=== PATIENT | female | born 1950 | race Asian ===

== ENCOUNTER 2017-06-03 16:05 | Inpatient (IN) | payer MEDICARE, BC ==
[~2017-06-03] VITALS: Ht 162.6 cm; Wt 61.0 kg
[2017-06-03] MEDS ORDERED: OCTREOTIDE 50 MCG in SOD CHLORIDE 0.9% 25 ML IVPB STA (16:13)
[2017-06-03] MEDS ORDERED: ONDANSETRON 4 MG INJ IV STA (16:13)
[2017-06-03] MEDS ORDERED: SOD CHLORIDE 0.9% 1,000 ML IV STA (16:13)
[2017-06-03] MEDS ORDERED: PANTOPRAZOLE 40 MG INJ IV STA (16:13)
[2017-06-03 16:56] LABS: BASOPHILS % 0.6 % (0.0-2.0); EOSINOPHILS % 0.3 % (0.0-7.0); HEMATOCRIT 26.2 % (37.0-47.0); HEMOGLOBIN 9.2 g/dl (12.0-16.0); LYMPHOCYTES # 1.7 10^3/ul (0.8-2.9); LYMPHOCYTES % 24.7 % (15.0-51.0); MEAN CORPUSCULAR HEMOGLOBIN 34.1 pg (29.0-33.0); MEAN CORPUSCULAR HGB CONC 35.1 g/dl (32.0-37.0); MEAN PLATELET VOLUME 10.9 fl (7.4-10.4); MONOCYTE # 0.3 10^3/ul (0.3-0.9); MONOCYTES % 4.4 % (0.0-11.0); NEUTROPHIL # 4.7 10^3/ul (1.6-7.5); NEUTROPHILS % 69.3 % (39.0-77.0); PLATELET COUNT 172 10^3/UL (140-415); RED CELL DISTRIBUTION WIDTH 12.5 % (11.5-14.5); WHITE BLOOD COUNT 6.8 10^3/ul (4.8-10.8)
--- NOTE | 2017-06-03 17:08 | RADRPT ---
PROCEDURE: XR Chest. CLINICAL INDICATION: Gastrointestinal bleeding. TECHNIQUE: Single frontal view. COMPARISON: None. FINDINGS: The lungs are clear. The heart size is normal. There is no pleural effusion. There is no pneumothorax. IMPRESSION: 1. Normal chest radiograph. RPTAT: QQ .Fabricio Benz MD, Date Time Electronically viewed and signed by .Fabricio Benz MD, on 06/03/2017 17:08 .R/
[2017-06-03 17:11] LABS: INR 1.1; PROTIME 14.2 Sec (12.2-14.2); PT RATIO 1.1
[2017-06-03 17:12] LABS: PARTIAL THROMBOPLASTIN TIME 28.2 Sec (25.0-35.0)
--- NOTE | 2017-06-03 17:12 | ERA ---
ER Documentation Chief Complaint Date/Time DATE: 06/03/17 TIME: 17:11 Chief Complaint GIB STARTING YESTERDAY, BLOOD IN VOMIT AND STOOL. HPI 66-year-old woman complains of coffee-ground emesis and black tarry stools since yesterday. She also complains of sharp epigastric abdominal pain, nonradiating and nonexertional. She denies blood per rectum and states she has never had these symptoms before, denies history of alcoholism, no fevers or chills, no chest pain or shortness of breath, no headache or blurry vision, no trauma, no dysuria. ROS All systems reviewed and are negative except as per history of present illness. Medications Home Meds Reported Medications Pravastatin Sodium* (Pravastatin Sodium*) 40 Mg Tablet, 40 MG PO HS, TAB 06/03/17 Lisinopril* (Lisinopril*) 5 Mg Tablet, 5 MG PO DAILY, #30 TAB 06/03/17 Metformin Hcl* (Metformin Hcl*) 500 Mg Tablet, 500 MG PO WITH BREAKFAST, #30 TAB 06/03/17 Allergies Allergies: Uncoded Allergies: PORK (Allergy, Unknown, 06/03/17) PMhx/Soc None Hx Miscellaneous Medical Probl: Yes (DM, VERICOSE VEIN SX) Hx Alcohol Use: No Hx Substance Use: No Hx Tobacco Use: No Smoking Status: Never smoker FmHx Family History: No diabetes Physical Exam Vitals Vital Signs Date Time Temp Pulse Resp B/P Pulse Ox O2 Delivery O2 Flow Rate FiO2 06/03/17 18:01 77 16 92/51 98 Room Air 06/03/17 17:17 72 16 96/52 98 Room Air 06/03/17 16:05 98.6 88 16 96/62 98 Physical Exam GENERAL: Well-developed, well-nourished, appears dehydrated, afebrile HEENT: Dry mucous membranes, pale conjunctiva, no cervical spine tenderness or step-off deformities, no goiter, no jaundice or icterus, extraocular movements intact without pain. No submandibular induration, and no pharyngeal erythema NEURO: Alert and oriented 3, cranial nerves II through XII intact bilaterally, pupils equal round reactive to light, no focal deficits or facial asymmetry, sensation intact distally Strength 5/5 in upper and lower extremities bilaterally CARDIAC: Regular rate and rhythm, no murmurs rubs or gallops LUNGS: Clear bilaterally no wheezing crackles or stridor ABDOMEN: Soft nontender, no guarding, no rigidity, no rebound, no psoas sign no obturator sign. Normoactive bowel sounds SKIN: Warm and dry to touch, no abrasions, contusions, or hematomas, no lacerations, no ecchymosis, no target lesions, and without ulcers EXTREMITIES: No clubbing cyanosis or edema, calves are bilaterally symmetrical, no Homans sign, no popliteal cord sign. Distal pulses equal and bilateral PSYCH: Normal affect without agitation or irritability Result Diagram: 06/03/17 1625 06/03/17 1625 Results 24 hrs Laboratory Tests Test 06/03/17 16:25 White Blood Count 6.810^3/ul Red Blood Count 2.7010^6/ul Hemoglobin 9.2g/dl Hematocrit 26.2% Mean Corpuscular Volume 97.0fl Mean Corpuscular Hemoglobin 34.1pg Mean Corpuscular Hemoglobin Concent 35.1g/dl Red Cell Distribution Width 12.5% Platelet Count 11349^3/UL Mean Platelet Volume 10.9fl Neutrophils % 69.3% Lymphocytes % 24.7% Monocytes % 4.4% Eosinophils % 0.3% Basophils % 0.6% Nucleated Red Blood Cells % 0.0/100WBC Neutrophils # 4.710^3/ul Lymphocytes # 1.710^3/ul Monocytes # 0.310^3/ul Eosinophils # 0.010^3/ul Basophils # 0.010^3/ul Nucleated Red Blood Cells # 0.010^3/ul Prothrombin Time 14.2Sec Prothrombin Time Ratio 1.1 INR International Normalized Ratio 1.10 Activated Partial Thromboplast Time 28.2Sec Sodium Level 139mmol/L Potassium Level 3.8mmol/L Chloride Level 108mmol/L Carbon Dioxide Level 24mmol/L Anion Gap 11 Blood Urea Nitrogen 40mg/dl Creatinine 0.65mg/dl Glucose Level 204mg/dl Calcium Level 8.0mg/dl Total Bilirubin 0.1mg/dl Direct Bilirubin 0.00mg/dl Indirect Bilirubin 0.1mg/dl Aspartate Amino Transf (AST/SGOT) 16IU/L Alanine Aminotransferase (ALT/SGPT) 26IU/L Alkaline Phosphatase 27IU/L Troponin I < 0.012ng/ml Total Protein 5.5g/dl Albumin 3.0g/dl Globulin 2.50g/dl Albumin/Globulin Ratio 1.20 Lipase 154U/L Current Medications Medications (Trade) Dose Ordered Sig/Adela Route PRN Reason Start Time Stop Time Status Last Admin Dose Admin Sodium Chloride (NS) 1,000 ml @ 2,000 mls/hr Q30M STAT IV 06/03/17 16:13 06/03/17 16:42 DC 06/03/17 16:21 Pantoprazole 40 mg 40 mg ONCE STAT IV 06/03/17 16:13 06/03/17 16:15 DC 06/03/17 16:23 Octreotide Acetate/Sodium Chloride (Sandostatin/NS) 26 ml @ 100 mls/hr Q16M STAT IVPB 06/03/17 16:13 06/03/17 16:28 DC 06/03/17 16:55 Ondansetron HCl (Zofran Inj) 4 mg ONCE STAT IV 06/03/17 16:13 06/03/17 16:15 DC 06/03/17 16:23 Procedures/MDM IV line was established patient was placed on manager equity rhythm strip revealed a sinus rhythm at about 80 bpm with upright P and T waves. Patient was afebrile. EKG performed, read by me revealed a normal sinus rhythm 85 bpm, normal axis, narrow QRS complex, no concerning ST elevations or depressions noted. I administered 2 L normal saline intravenously for initial hypotension, Zofran 4 mg IV, Protonix 40 mg IV, and octreotide 50 mcg IV 1. Chest X-ray 1V Interpreted by me: Soft Tissue: No acute abnormalities Bones: No acute abnormalities Mediastinum/Cardiac Silhouette/Lungs: No acute abnormalities CBC revealed anemia with a hemoglobin of 9.2, electrolytes revealed dehydration with a BUN/creatinine of 40/0.7, liver function tests are normal, electrolytes are unremarkable although calcium was low at 8. I obtain GI consultation regarding the patient's presentation and symptomatology , Dr. Bolivar agreed to consult. Critical Care: Time: 43 minutes, this was time separate from other billable procedures. Treatments/Evaluations: Close monitoring and treatment of unstable vital signs, cardiorespiratory, and neurologic status, while maintaining tight balance of fluid, respiratory, and cardiac interventions. Patient initially presented hypotensive and symptomatic, she required aggressive IV fluid resuscitation which improved blood pressure. Patient admitted to telemetry setting. Departure Diagnosis: Primary Impression: Anemia Qualified Code: D64.9 - Anemia, unspecified type Additional Impressions: Hemorrhagic gastritis Qualified Code: K29.01 - Acute gastritis with hemorrhage, unspecified gastritis type Dehydration Hypotension Qualified Code: I95.9 - Hypotension, unspecified hypotension type Condition: SAWYER Hu MD Jun 03, 2017 17:12
[2017-06-03 17:15] LABS: ALANINE AMINOTRANSFERASE 26 IU/L (13-69); ALKALINE PHOSPHATASE 27 IU/L (42-121); ANION GAP 11 (8-16); ASPARTATE AMINO TRANSFERASE 16 IU/L (15-46); BILIRUBIN,INDIRECT 0.1 mg/dl (0-1.1); BILIRUBIN,TOTAL 0.1 mg/dl (0.2-1.3); BLOOD UREA NITROGEN 40 mg/dl (7-20); CARBON DIOXIDE 24 mmol/L (21-31); CHLORIDE 108 mmol/L (97-110); CREATININE 0.65 mg/dl (0.44-1.00); GLUCOSE 204 mg/dl (70-220); POTASSIUM 3.8 mmol/L (3.5-5.1); SODIUM 139 mmol/L (135-144); TOTAL PROTEIN 5.5 g/dl (6.1-8.1)
[2017-06-03] MEDS ORDERED: METF500T4 PO (17:22)
[2017-06-03] MEDS ORDERED: LISI-313 PO (17:23)
[2017-06-03] MEDS ORDERED: PRAV40TA76 PO (17:23)
[2017-06-03 17:34] LABS: TROPONIN-I < 0.012 ng/ml (0.00-0.12)
[2017-06-03 19:54] VITALS: BP 108/57; RESP 20
[2017-06-03 20:02] VITALS: PULSE 90
[2017-06-03 20:13] VITALS: Ht 162.6 cm; Wt 61.0 kg
[2017-06-03 20:25] VITALS: BP 108/57; PULSE 94; RESP 20
[2017-06-03] MEDS ORDERED: hydrALAzine 20 MG INJ IV PRN (21:00)
[2017-06-03] MEDS ORDERED: ONDANSETRON 4 MG INJ IV PRN (21:00)
[2017-06-03] MEDS: DEXTROSE 5%-0.45% NACL 1,000 ML IV SCH (21:26)
[2017-06-04] VITALS (12 sets, daily range): BP systolic 85–119; BP diastolic 47–59; PULSE 73–95; RESP 18–20
[2017-06-04] MEDS ORDERED: DEXTROSE 50% 50 ML SYRINGE IV PRN ×2 (05:30)
[2017-06-04] MEDS ORDERED: GLUCAGON 1 MG INJ IM PRN (05:30)
[2017-06-04] MEDS ORDERED: GLUCOSE GEL 15 GRAM TUBE BUCCAL PRN (05:30)
[2017-06-04] MEDS ORDERED: GLUCOSE GEL 15 GRAM TUBE PO PRN ×2 (05:30)
[2017-06-04] MEDS: PANTOPRAZOLE 40 MG INJ IV SCH ×2 (05:35→17:57)
[2017-06-04] MEDS: DEXTROSE 5%-0.45% NACL 1,000 ML IV SCH ×3 (07:22→23:00)
--- NOTE | 2017-06-04 07:49 | HP ---
Date/Time of Note Date/Time of Note DATE: 06/04/17 TIME: 07:44 Assessment/Plan VTE Prophylaxis VTE Prophylaxis Intervention: SCD's Lines/Catheters IV [facility]ter Type (from [facility]): Peripheral IV Urinary Cath still in place: No Assessment/Plan Assessment/Plan 1. Upper GI bleed -Monitor H&H closely -PPI -GI consult 2. Syncope, secondary to above -Continue telemetry monitoring -We will check a 2D echo to evaluate for any structural heart disease resulting in her syncope even though most likely secondary to GI bleed/vomiting 3. History of type II diabetes -Check A1c -Insulin while in-house with adjustment as needed 4. History of dyslipidemia -Continue statin HPI/ROS Admit Date/Time Admit Date/Time Jun 03, 2017 at 17:41 Hx of Present Illness This is a 66-year-old female with a history of diabetes and dyslipidemia who presented to the emergency department complaining of "coffee ground emesis" and a dark stool as well as the loss of consciousness. Patient went to the bathroom where she had dark stool as well as vomited coffee-ground emesis and the next thing she knows her was trying to wake her up. Patient not sure for how long she was unconscious. She denied a history of GI bleed. She also said she follows up with her PMD every 3 months for her diabetes but stayed she was never told that she was anemic, even though she said her hemoglobin was either 11 or 12 the last time he was checked. No other complaints In the ER, hemoglobin 9.2, BUN 40 with a creatinine of 0.65 PMH/Family/Social Social History Smoking Status: Never smoker Exam/Review of Systems Vital Signs Vitals Vital Signs Date Time Temp Pulse Resp B/P Pulse Ox O2 Delivery O2 Flow Rate FiO2 06/04/17 04:20 97.9 72 20 119/59 98 06/03/17 20:25 Room Air Intake and Output 06/03/17 06/03/17 06/04/17 15:00 23:00 07:00 Intake Total 900 ml Output Total 600 ml Balance 300 ml Labs Result Diagram: 06/03/17 1625 06/03/17 1625 Medications Medications Current Medications Hydralazine HCl (Apresoline) 10 mg Q4H PRN IV ELEVATED BLOOD PRESSURE; Start at 21:00 Ondansetron HCl 4 mg 4 mg Q6H PRN IV NAUSEA AND/OR VOMITING; Start 06/03/17 at 21:00 Dextrose/Sodium Chloride (D5-1/2ns) 1,000 ml @ 100 mls/hr Q10H IV Last administered on 06/04/17 07:22; Admin Dose 100 MLS/HR; Start 06/03/17 at 21:00 Pantoprazole (Protonix Iv) 40 mg BID@06,18 IV Last administered on 06/04/17 05 :35; Admin Dose 40 MG; Start 06/04/17 at 06:00 Lisinopril (Zestril) 5 mg DAILY PO ; Start 06/04/17 at 09:00 Diagnostic Test (Pha) (Accu-Chek) 1 ea 02 XX ; Start 06/05/17 at 02:00 Insulin Glargine (Lantus) 10 unit DAILY@08 SC ; Start 06/04/17 at 08:00 Diagnostic Test (Pha) (Accu-Chek) 1 ea 02 XX ; Start 06/05/17 at 02:00 Miscellaneous Information 1 ea NOTE XX ; Start 06/04/17 at 05:30 Glucose (Glutose) 15 gm Q15M PRN PO DECREASED GLUCOSE; Start 06/04/17 at 05:30 Glucose (Glutose) 22.5 gm Q15M PRN PO DECREASED GLUCOSE; Start 06/04/17 at 05: 30 Dextrose (D50w Syringe) 25 ml Q15M PRN IV DECREASED GLUCOSE; Start 06/04/17 at 05:30 Dextrose (D50w Syringe) 50 ml Q15M PRN IV DECREASED GLUCOSE; Start 06/04/17 at 05:30 Glucagon (Glucagen) 1 mg Q15M PRN IM DECREASED GLUCOSE; Start 06/04/17 at 05:30 Glucose (Glutose) 15 gm Q15M PRN BUCCAL DECREASED GLUCOSE; Start 06/04/17 at 05 :30 YANG ANGELES MD Jun 04, 2017 07:49
[2017-06-04] MEDS ORDERED: metFORMIN 500 MG TAB PO SCH (07:55)
[2017-06-04 08:04] LABS: ABNORMAL IP MESSAGE 1; HEMATOCRIT 20.3 % (37.0-47.0); MEAN CORPUSCULAR HEMOGLOBIN 32.4 pg (29.0-33.0); MEAN CORPUSCULAR VOLUME 98.1 fl (82.0-101.0); MEAN PLATELET VOLUME 10.8 fl (7.4-10.4); PLATELET COUNT 146 10^3/UL (140-415); RED BLOOD COUNT 2.07 10^6/ul (4.20-5.40); RED CELL DISTRIBUTION WIDTH 12.8 % (11.5-14.5); WHITE BLOOD COUNT 5.5 10^3/ul (4.8-10.8)
[2017-06-04 08:21] LABS: POSITIVE DIFF @See below
[2017-06-04] MEDS: LISINOPRIL 5 MG TAB PO SCH (08:24)
[2017-06-04 08:25] LABS: HEMOGLOBIN 6.7 g/dl (12.0-16.0)
[2017-06-04 08:44] LABS: ALBUMIN 2.4 g/dl (3.3-4.9); ALBUMIN/GLOBULIN RATIO 0.96; BILIRUBIN,INDIRECT 0.2 mg/dl (0-1.1); BILIRUBIN,TOTAL 0.2 mg/dl (0.2-1.3); CALCIUM 7.9 mg/dl (8.4-10.2); CREATININE 0.69 mg/dl (0.44-1.00); IRON 97 ug/dl (35-150); POTASSIUM 3.6 mmol/L (3.5-5.1); TOTAL PROTEIN 4.9 g/dl (6.1-8.1)
[2017-06-04 08:53] LABS: TOTAL IRON BINDING CAPACITY 205 ug/dl (241-421)
[2017-06-04 09:15] LABS: FERRITIN 20.2 ng/ml (11.1-264.0)
[2017-06-04] MEDS: INSULIN ASPART [NOVOLOG] 3 ML PEN SC SCH ×4 (10:36→21:00)
[2017-06-04 11:58] LABS: UR BACTERIA MODERATE /HPF (NONE SEEN); UR MUCUS MODERATE /HPF (NONE SEEN); UR RBC 2 /HPF (0-5)
[2017-06-04 12:04] LABS: ADD UMIC YES; UR ASCORBIC ACID NEGATIVE (NEGATIVE); UR BILIRUBIN (Dip) NEGATIVE (NEGATIVE); UR BLOOD (Dip) NEGATIVE (NEGATIVE); UR CLARITY CLEAR (CLEAR); UR COLOR YELLOW (YELLOW); UR GLUCOSE (Dip) 1+ mg/dL (NEGATIVE); UR KETONES (Dip) NEGATIVE (NEGATIVE); UR LEUKOCYTE ESTERASE (Dip) TRACE Leu/ul (NEGATIVE); UR NITRITE (Dip) POSITIVE (NEGATIVE); UR SPECIFIC GRAVITY (Dip) 1.018 (1.003-1.030); UR TOTAL PROTEIN (Dip) NEGATIVE (NEGATIVE); UR UROBILINOGEN (Dip) NEGATIVE (NEGATIVE)
[2017-06-04] MEDS: INSULIN GLARGINE [LANtus] 3 ML PEN SC SCH (12:12)
--- NOTE | 2017-06-04 18:41 | CONS ---
Date/Time of Note Date/Time of Note DATE: 06/04/17 TIME: 18:32 Assessment/Plan Assessment/Plan Additional Assessment/Plan Assessment Hematemesis Acute vs chronic anemia Bleeding peptic ulcer vs Guillermina tear vs erosive gastritis vs others Diabetes mellitus Plan * EGD risks and benefit explained to patient and agreed with the planned procedure * monitor hemoglobin and hematocrit daily * PPI * case discussed with Dr Bolivar * further orders will depend on clinical course Consultation Date/Type/Reason Admit Date/Time Jun 03, 2017 at 17:41 Date of Consultation: Jun 04, 2017 Type of Consultation: gastroenterology Reason for Consultation hematemesis Referring Provider: THO AMEZQUITA Hx of Present Illness 66 year old female complaining of sudden onset hematemesis x2 approximately 500 cc per patient with associated syncope.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 and was rushed at our emergency room where initial assessment revealed a hemoglobin of 6.7 .She was then given 2 units PRBC.Patient is known diabetic presently denies any episode of hematemesis nor hematochezia Constitutional: improved, no complaints Eyes: no complaints ENT: no complaints Respiratory: no complaints Cardiovascular: no complaints Gastrointestinal: blood Genitourinary: no complaints Musculoskeletal: no complaints Skin: no complaints Neurologic: no complaints Endocrine: no complaints Lymphatic: no complaints Psychological: nl mood/affect, no complaints Immunologic: no complaints Past Medical History Medical History: diabetes, GI bleed Social History Smoking Status: Never smoker Exam/Review of Systems Vital Signs Vitals Vital Signs Date Time Temp Pulse Resp B/P Pulse Ox O2 Delivery O2 Flow Rate FiO2 06/04/17 16:00 73 06/04/17 14:58 99.2 18 93/47 96 06/03/17 20:25 Room Air Intake and Output 06/03/17 06/03/17 06/04/17 15:00 23:00 07:00 Intake Total 1000 ml Output Total 600 ml Balance 400 ml Exam Constitutional: alert, oriented, well developed Psych: nl mood/affect, no complaints Head: atraumatic, normocephalic Eyes: EOMI, PERRL, nl conjunctiva, nl lids, nl sclera ENMT: nl external ears & nose, nl lips & teeth, nl nasal mucosa & septum Neck: non-tender, supple Respiratory: clear to auscultation, normal air movement Cardiovascular: nl pulses, regular rate and rhythm Gastrointestinal: nl liver, spleen, non-tender, soft Musculoskeletal: nl extremities to inspection, nl gait and stance Extremities: normal pulses Neurological: SWITCH ADJUSTER II-XII intact, nl mental status, nl speech, nl strength Skin: nl turgor, No rash or lesions Lymph: nl lymph nodes Results Result Diagram: 06/04/17 0709 06/04/17 0709 Results 24 hrs Laboratory Tests Test 06/04/17 07:09 06/04/17 08:21 06/04/17 12:02 06/04/17 18:05 White Blood Count 5.5 Red Blood Count 2.07 #L Hemoglobin 6.7 #*L Hematocrit 20.3 #L Mean Corpuscular Volume 98.1 Mean Corpuscular Hemoglobin 32.4 Mean Corpuscular Hemoglobin Concent 33.0 Red Cell Distribution Width 12.8 Platelet Count 146 Mean Platelet Volume 10.8 H Neutrophils % Lymphocytes % Monocytes % Eosinophils % Basophils % Nucleated Red Blood Cells % 0.0 Neutrophils # Lymphocytes # Monocytes # Eosinophils # Basophils # Nucleated Red Blood Cells # Sodium Level 138 Potassium Level 3.6 Chloride Level 110 Carbon Dioxide Level 27 Anion Gap 5 L Blood Urea Nitrogen 21 #H Creatinine 0.69 Glucose Level 165 Hemoglobin A1c 6.6 H Calcium Level 7.9 L Iron Level 97 Total Iron Binding Capacity 205 L Percent Iron Saturation 47 Ferritin 20.2 Total Bilirubin 0.2 Direct Bilirubin 0.00 Indirect Bilirubin 0.2 Aspartate Amino Transf (AST/SGOT) 14 L Alanine Aminotransferase (ALT/SGPT) 24 Alkaline Phosphatase 24 L Total Protein 4.9 L Albumin 2.4 L Globulin 2.50 Albumin/Globulin Ratio 0.96 Triglycerides Level 170 H Cholesterol Level 76 L LDL Cholesterol, Calculated 23 HDL Cholesterol 19 L Cholesterol/HDL Ratio 4.0 Bedside Glucose 185 142 128 Medications Medications Current Medications Hydralazine HCl (Apresoline) 10 mg Q4H PRN IV ELEVATED BLOOD PRESSURE; Start at 21:00 Ondansetron HCl 4 mg 4 mg Q6H PRN IV NAUSEA AND/OR VOMITING; Start 06/03/17 at 21:00 Dextrose/Sodium Chloride (D5-1/2ns) 1,000 ml @ 100 mls/hr Q10H IV Last administered on 06/04/17t 07:22; Admin Dose 100 MLS/HR; Start 06/03/17 at 21:00 Pantoprazole (Protonix Iv) 40 mg BID@06,18 IV Last administered on 06/04/17 17 :57; Admin Dose 40 MG; Start 06/04/17 at 06:00 Lisinopril (Zestril) 5 mg DAILY PO Last administered on 06/04/17 08:24; Admin Dose 5 MG; Start 06/04/17 at 09:00 Diagnostic Test (Pha) (Accu-Chek) 1 ea 02 XX ; Start 06/05/17 at 02:00 Insulin Glargine (Lantus) 10 unit DAILY@08 SC Last administered on 06/04/17 12 :12; Admin Dose 10 UNIT; Start 06/04/17 at 08:00 Diagnostic Test (Pha) (Accu-Chek) 1 ea 02 XX ; Start 06/05/17 at 02:00 Miscellaneous Information 1 ea NOTE XX ; Start 06/04/17 at 05:30 Glucose (Glutose) 15 gm Q15M PRN PO DECREASED GLUCOSE; Start 06/04/17 at 05:30 Glucose (Glutose) 22.5 gm Q15M PRN PO DECREASED GLUCOSE; Start 06/04/17 at 05: 30 Dextrose (D50w Syringe) 25 ml Q15M PRN IV DECREASED GLUCOSE; Start 06/04/17 at 05:30 Dextrose (D50w Syringe) 50 ml Q15M PRN IV DECREASED GLUCOSE; Start 06/04/17 at 05:30 Glucagon (Glucagen) 1 mg Q15M PRN IM DECREASED GLUCOSE; Start 06/04/17 at 05:30 Glucose (Glutose) 15 gm Q15M PRN BUCCAL DECREASED GLUCOSE; Start 06/04/17 at 05 :30 TESS MATA NP Jun 04, 2017 18:41
[2017-06-05] VITALS (25 sets, daily range): BP systolic 80–109; BP diastolic 38–63; PULSE 60–80; RESP 16–23
[2017-06-05] MEDS: ACCU-CHEK XX SCH ×2 (01:59)
[2017-06-05] MEDS: PANTOPRAZOLE 40 MG INJ IV SCH ×2 (05:51→19:00)
[2017-06-05 07:35] LABS: BASOPHILS % 0.5 % (0.0-2.0); EOSINOPHILS # 0.2 10^3/ul (0.0-0.5); EOSINOPHILS % 2.8 % (0.0-7.0); HEMATOCRIT 27.4 % (37.0-47.0); HEMOGLOBIN 9.2 g/dl (12.0-16.0); LYMPHOCYTES # 2.3 10^3/ul (0.8-2.9); LYMPHOCYTES % 36.5 % (15.0-51.0); MEAN CORPUSCULAR HEMOGLOBIN 31.3 pg (29.0-33.0); MEAN CORPUSCULAR HGB CONC 33.6 g/dl (32.0-37.0); MEAN CORPUSCULAR VOLUME 93.2 fl (82.0-101.0); MEAN PLATELET VOLUME 10.6 fl (7.4-10.4); MONOCYTE # 0.4 10^3/ul (0.3-0.9); MONOCYTES % 6.6 % (0.0-11.0); NEUTROPHIL # 3.4 10^3/ul (1.6-7.5); NEUTROPHILS % 53.1 % (39.0-77.0); PLATELET COUNT 139 10^3/UL (140-415); RED BLOOD COUNT 2.94 10^6/ul (4.20-5.40); RED CELL DISTRIBUTION WIDTH 14.4 % (11.5-14.5); WHITE BLOOD COUNT 6.3 10^3/ul (4.8-10.8)
[2017-06-05 07:49] LABS: CALCIUM 8.5 mg/dl (8.4-10.2); CREATININE 0.78 mg/dl (0.44-1.00); PHOSPHORUS 3.4 mg/dl (2.5-4.9); POTASSIUM 3.8 mmol/L (3.5-5.1)
[2017-06-05] MEDS: INSULIN ASPART [NOVOLOG] 3 ML PEN SC SCH ×4 (07:55→20:47)
[2017-06-05] MEDS: LISINOPRIL 5 MG TAB PO SCH (08:27)
[2017-06-05] MEDS: INSULIN GLARGINE [LANtus] 3 ML PEN SC SCH (08:54)
[2017-06-05] MEDS: DEXTROSE 5%-0.45% NACL 1,000 ML IV SCH ×2 (13:30→23:00)
--- NOTE | 2017-06-05 14:01 | PN ---
Date/Time of Note Date/Time of Note DATE: 06/05/17 TIME: 13:59 Assessment/Plan VTE Prophylaxis VTE Prophylaxis Intervention: ambulation Lines/Catheters IV [facility] Type (from [facility] Peripheral IV Urinary Cath still in place: No Assessment/Plan Chief Complaint/Hosp Course 1. Upper GI bleed-stable -EGD today -PPI -GI consultation obtained 2. Syncope, secondary to above 3. History of type II diabetes-A1c 6.6 -Insulin while in-house with adjustment as needed 4. History of dyslipidemia -Continue statin Prophylaxis: Ambulation Problems: Subjective 24 Hr Interval Summary Constitutional: no complaints Exam/Review of Systems Vital Signs Vitals Vital Signs Date Time Temp Pulse Resp B/P Pulse Ox O2 Delivery O2 Flow Rate FiO2 06/05/17 12:20 69 06/05/17 11:09 98.5 18 101/50 97 06/03/17 20:25 Room Air Intake and Output 06/04/17 06/04/17 06/05/17 15:00 23:00 07:00 Intake Total 300 ml 800 ml Output Total 600 ml 700 ml 700 ml Balance -300 ml -700 ml 100 ml Exam Constitutional: alert, oriented Respiratory: clear to auscultation Cardiovascular: regular rate and rhythm Gastrointestinal: soft, No distended Musculoskeletal: nl extremities to inspection Results Result Diagram: 06/05/17 0640 06/05/17 0640 Results 24 hrs Laboratory Tests Test 06/04/17 18:05 06/04/17 21:17 06/05/17 05:40 06/05/17 06:40 Bedside Glucose 128 175 Lab Scanned Report BLOOD TRANSFUSION White Blood Count 6.3 Red Blood Count 2.94 #L Hemoglobin 9.2 #L Hematocrit 27.4 #L Mean Corpuscular Volume 93.2 Mean Corpuscular Hemoglobin 31.3 Mean Corpuscular Hemoglobin Concent 33.6 Red Cell Distribution Width 14.4 Platelet Count 139 L Mean Platelet Volume 10.6 H Neutrophils % 53.1 Lymphocytes % 36.5 Monocytes % 6.6 Eosinophils % 2.8 Basophils % 0.5 Nucleated Red Blood Cells % 0.0 Neutrophils # 3.4 Lymphocytes # 2.3 Monocytes # 0.4 Eosinophils # 0.2 Basophils # 0.0 Nucleated Red Blood Cells # 0.0 Sodium Level 140 Potassium Level 3.8 Chloride Level 108 Carbon Dioxide Level 29 Anion Gap 7 L Blood Urea Nitrogen 11 # Creatinine 0.78 Glucose Level 133 Calcium Level 8.5 Phosphorus Level 3.4 Magnesium Level 2.0 Test 06/05/17 07:58 06/05/17 13:08 Bedside Glucose 160 157 Medications Medications Current Medications Hydralazine HCl (Apresoline) 10 mg Q4H PRN IV ELEVATED BLOOD PRESSURE; Start at 21:00 Ondansetron HCl 4 mg 4 mg Q6H PRN IV NAUSEA AND/OR VOMITING; Start 06/03/17 at 21:00 Dextrose/Sodium Chloride (D5-1/2ns) 1,000 ml @ 100 mls/hr Q10H IV Last administered on 06/05/17 13:30; Admin Dose 100 MLS/HR; Start 06/03/17 at 21:00 Pantoprazole (Protonix Iv) 40 mg BID@06,18 IV Last administered on 06/05/17 05 :51; Admin Dose 40 MG; Start 06/04/17 at 06:00 Lisinopril (Zestril) 5 mg DAILY PO Last administered on 06/05/17 08:27; Admin Dose 5 MG; Start 06/04/17 at 09:00 Diagnostic Test (Pha) (Accu-Chek) 1 ea 02 XX ; Start 06/05/17 at 02:00 Insulin Glargine (Lantus) 10 unit DAILY@08 SC Last administered on 06/05/17 08 :54; Admin Dose 10 UNIT; Start 06/04/17 at 08:00 Diagnostic Test (Pha) (Accu-Chek) 1 ea 02 XX ; Start 06/05/17 at 02:00 Miscellaneous Information 1 ea NOTE XX ; Start 06/04/17 at 05:30 Glucose (Glutose) 15 gm Q15M PRN PO DECREASED GLUCOSE; Start 06/04/17 at 05:30 Glucose (Glutose) 22.5 gm Q15M PRN PO DECREASED GLUCOSE; Start 06/04/17 at 05: 30 Dextrose (D50w Syringe) 25 ml Q15M PRN IV DECREASED GLUCOSE; Start 06/04/17 at 05:30 Dextrose (D50w Syringe) 50 ml Q15M PRN IV DECREASED GLUCOSE; Start 06/04/17 at 05:30 Glucagon (Glucagen) 1 mg Q15M PRN IM DECREASED GLUCOSE; Start 06/04/17 at 05:30 Glucose (Glutose) 15 gm Q15M PRN BUCCAL DECREASED GLUCOSE; Start 06/04/17 at 05 :30 SUYAPA CELAYA Jun 05, 2017 14:01
[2017-06-05] MEDS ORDERED: PROPOFOL 20 ML ONE (18:22)
[2017-06-05] MEDS ORDERED: LIDOCAINE 2% (SDV) 5 ML INJ ONE (18:22)
--- NOTE | 2017-06-05 18:36 | OPPN ---
Date/Time of Note Date/Time of Note DATE: 06/05/17 TIME: 18:31 Proc Note GI Procedure Date 06/05/17 Pre-procedure Diagnosis * Hematemesis Post-procedure Diagnosis Impression: * Multiple duodenal ulcers, severe deformity from previous active ulcers * No active bleeding or stigmata recent bleeding * Mild gastritis. Rule out H. pylori infection. Biopsies obtained Plan: * Continue Protonix 40 mg twice daily * Add Carafate 1 g 4 times daily * Review pathology as soon as available * Avoid ulcerogenic's . Procedure Performed: Endoscopy (Biopsies) Surgeon CHATO BARBOSA MD Ad Copy Writer none Anesthesia Type: MAC Anesthesiologist: KIM HERNANDEZ MD Tourniquet Time none EBL none Transfusion required none Biopsy 1: Gastric body and antrum/rule out H. pylori infection Grafts/Implants none Tubes/Drains none Complication(s) none Pt Condition post procedure: stable Disposition: PACU Indications: other (Hematemesis) Procedure Description After informed consent, with the patient/relatives understanding the procedure, its indications, potential risks and complications, including but not limited to : allergic reaction, bleeding, perforation or infection, and after all pertinent questions were answered to the patients satisfaction, the patient/ relatives signed witnessed informed consent. Following this, premedication was administered slowly IV push under careful cardiovascular and respiratory monitoring with pulse oximetry, automatic blood pressure, and reimbursement liaison. Once the sedative effect was achieved the patient was place in the left lateral decubitus, the panendoscope was introduced and advanced under visual control. Careful examination of the upper gastrointestinal tract, both on insertion as well as withdrawal of the instrument disclosing the following findings: ESOPHAGUS: the mucosa of the entire esophagus was carefully examined and showed the following findings: the mucosa appears within normal limits. There is no evidence of esophagitis, varices, neoplasm, or stricture. No Hiatal Hernia identified. STOMACH: Upon entrance to the stomach air was insufflated, the gastric rangel distended normally. The mucosa of the fundus, body and antrum of the stomach was carefully examined both head-on and on retroflexion, and showed the following findings: There is mild diffuse erythema and edema of the mucosa. Biopsies were obtained to rule out H. pylori infection. Otherwise the mucosa appears within normal limits with no abnormalities. There is no evidence of ulcers or neoplasm. PYLORUS: The pylorus was carefully examined and showed the following findings: the pylorus appears patent and within normal limits, with no evidence of gastric outlet obstruction. DUODENUM: The duodenal mucosa was carefully examined in the duodenal bulb as well as the second portion of the duodenum and showed the following findings: There are several at least 3 cratered duodenal ulcers with no evidence of active bleeding or stigmata to suggest high likelihood of rebleeding. The duodenal bulb is severely deformed with evidence of previous ulcerations that have healed weaving scar tissue. Otherwise the mucosa appears unremarkable with no evidence of neoplasm. 2ND portion of the duodenum appears unremarkable Copies To: CC: CHATO BARBOSA MD, MORDO MD Jun 05, 2017 18:36
--- NOTE | 2017-06-05 18:42 | HPN ---
Date/Time of Note Date/Time of Note DATE: 06/05/17 TIME: 18:42 Interval H&P Admission Note Pt. seen H&P reviewed: No system changes CHATO BARBOSA MD Jun 05, 2017 18:42
[2017-06-05] MEDS: SUCRALFATE (100 MG/ML) 10ML CUP PO SCH (20:48)
[2017-06-06 00:02] VITALS: PULSE 67
[2017-06-06 00:23] VITALS: BP 91/54; RESP 18
[2017-06-06] MEDS: ACCU-CHEK XX SCH ×2 (02:00)
[2017-06-06 04:00] VITALS: BP 92/50; PULSE 65; RESP 20
[2017-06-06] MEDS: PANTOPRAZOLE 40 MG INJ IV SCH (05:56)
[2017-06-06 07:54] LABS: EOSINOPHILS % 3.1 % (0.0-7.0); HEMATOCRIT 27.2 % (37.0-47.0); HEMOGLOBIN 9.4 g/dl (12.0-16.0); LYMPHOCYTES % 30.5 % (15.0-51.0); MEAN CORPUSCULAR HEMOGLOBIN 32.3 pg (29.0-33.0); MEAN CORPUSCULAR HGB CONC 34.6 g/dl (32.0-37.0); MEAN CORPUSCULAR VOLUME 93.5 fl (82.0-101.0); MEAN PLATELET VOLUME 10.5 fl (7.4-10.4); MONOCYTES % 6.9 % (0.0-11.0); NEUTROPHILS % 58.7 % (39.0-77.0); PLATELET COUNT 160 10^3/UL (140-415); RED BLOOD COUNT 2.91 10^6/ul (4.20-5.40); RED CELL DISTRIBUTION WIDTH 14.1 % (11.5-14.5); WHITE BLOOD COUNT 5.5 10^3/ul (4.8-10.8)
[2017-06-06 07:55] LABS: BASOPHILS % 0.4 % (0.0-2.0); EOSINOPHILS # 0.2 10^3/ul (0.0-0.5); LYMPHOCYTES # 1.7 10^3/ul (0.8-2.9); MONOCYTE # 0.4 10^3/ul (0.3-0.9); NEUTROPHIL # 3.2 10^3/ul (1.6-7.5)
[2017-06-06] MEDS: INSULIN ASPART [NOVOLOG] 3 ML PEN SC SCH (07:55)
[2017-06-06 08:00] VITALS: PULSE 70
[2017-06-06 08:04] VITALS: BP 97/46; RESP 16
[2017-06-06] MEDS: LISINOPRIL 5 MG TAB PO SCH (08:07)
[2017-06-06] MEDS: SUCRALFATE (100 MG/ML) 10ML CUP PO SCH (08:08)
[2017-06-06] MEDS: DEXTROSE 5%-0.45% NACL 1,000 ML IV SCH (08:09)
[2017-06-06] MEDS: INSULIN GLARGINE [LANtus] 3 ML PEN SC SCH (08:25)
[2017-06-06] MEDS ORDERED: CARAS PO (10:12)
[2017-06-06] MEDS ORDERED: PANT40TA3 PO (10:12)
--- NOTE | 2017-06-06 10:13 | PDOCDIS ---
Discharge Instructions CONDITION Patient Condition: Good HOME CARE INSTRUCTIONS: Diet Instructions: Regular ACTIVITY: Activity Restrictions: No Restrictions FOLLOW UP/APPOINTMENTS Follow-up Plan F/U WITH YOUR PCP IN 1-2 WEEKS, F/U WITH DR BARBOSA IN CLINIC, PLEASE CALL FOR AN APPOINTMENT SUYAPA CELAYA Jun 06, 2017 10:13
--- NOTE | 2017-06-06 12:04 | DS ---
Date/Time of Note Date/Time of Note DATE: 06/06/17 TIME: 11:57 Discharge Summary Admission/Discharge Info Admit Date/Time Jun 03, 2017 at 17:41 Discharge Date/Time June 06, 2017 Discharge Diagnosis 1. Upper GI bleed-stable -EGD showed multiple duodenal ulcers, severe deformity from previous active ulcers with no active bleeding or stigmata of recent bleeding as well as mild gastritis -Patient to follow-up with Dr. Bolivar for results of biopsies and H. pylori -DC with Protonix 40 mg twice daily and Carafate 1 g 4 times daily -Have told patient to avoid NSAIDs 2. Syncope, secondary to above-stable 3. History of type II diabetes-A1c 6.6 -Continue home meds 4. History of dyslipidemia -Continue statin Patient Condition: Good Hospital Course Patient is a 66-year-old female with a history of diabetes and dyslipidemia who presented to the emergency department complaining of "coffee ground emesis" and a dark stool as well as the loss of consciousness. In the ER hemoglobin found to be 9.2. Patient seen by GI and EGD was done which showed multiple duodenal ulcers, severe deformity from previous active ulcers with no active bleeding or stigmata of recent bleeding as well as mild gastritis. Patient's episode of syncope was secondary to the GI bleed, patient has no cardiac history and there are no issues on telemetry. She was taking NSAIDs for knee pain was likely because of her ulcers. Patient was advised to no longer take NSAIDs and she understood. Patient had no further episodes of bleeding while in-house, patient was given 2 units of packed red blood cells and her hemoglobin was stable. On the day of discharge patient's vitals, labs and physical exam are stable she had no further acute complaints and questions were answered. Patient was to follow-up with Dr. Bolivar for results of biopsies and H. pylori. Home Meds Active Scripts Pantoprazole* (Protonix*) 40 Mg Tablet., 40 MG PO BID for 30 Days, TAB 1 Refill Prov:SUYAPA CELAYA 06/06/17 Sucralfate* (Carafate*) 1 Gm/10 Ml Susp, 1 GM PO QID for 30 Days, 1 Refill Prov:SUYAPA CELAYA 06/06/17 Reported Medications Pravastatin Sodium* (Pravastatin Sodium*) 40 Mg Tablet, 40 MG PO HS, TAB 06/03/17 Lisinopril* (Lisinopril*) 5 Mg Tablet, 5 MG PO DAILY, #30 TAB 06/03/17 Metformin Hcl* (Metformin Hcl*) 500 Mg Tablet, 500 MG PO WITH BREAKFAST, #30 TAB 06/03/17 Follow-up Plan F/U WITH YOUR PCP IN 1-2 WEEKS, F/U WITH DR BOLIVAR IN CLINIC, PLEASE CALL FOR AN APPOINTMENT Primary Care Provider Leila Montaño Time spent on discharge: > 30 minutes SUYAPA CELAYA Jun 06, 2017 12:04
== END 2017-06-06 11:45 | disposition home or self-care (01) | DRG 378 ==
LOC: E/R 16:05 → TEL 17:41
PROVIDERS: ADMIT Internal Medicine; ATTEND Internal Medicine
PROC: 0DB68ZX Excision of Stomach, Via Natural or Artificial Opening Endoscopic, Diagnostic (ICD-10-PCS; principal; 2017-06-03)
PROC: 30233N1 Transfusion of Nonautologous Red Blood Cells into Peripheral Vein, Percutaneous Approach (ICD-10-PCS; 2017-06-04)
DX: K92.0 Hematemesis (principal); D62 Acute posthemorrhagic anemia; I95.9 Hypotension, unspecified; E11.8 Type 2 diabetes mellitus with unspecified complications; K26.9 Duodenal ulcer, unspecified as acute or chronic, without hemorrhage or perforation; E86.0 Dehydration; R55 Syncope and collapse; Z79.84 Long term (current) use of oral hypoglycemic drugs; K29.70 Gastritis, unspecified, without bleeding; K92.1 Melena; Z79.1 Long term (current) use of non-steroidal anti-inflammatories (NSAID); B19.20 Unspecified viral hepatitis C without hepatic coma
CPT/HCPCS: 36415; 36430; 71010; 80048; 80053; 80061; 81001; 82728; 82962; 83036; 83540; 83690; 83735; 84100; 84484; 85025; 85610; 85730; 86850; 86900; 86901; 86920; 88305; 88312; 93005; 96374; 96375; C9113; J1815; J2405; J7030; J7042; P9016